=== PATIENT | female | born 1970 | race Caucasian/White ===

== ENCOUNTER 2019-11-13 11:53 | Emergency (ER) | payer SELFPAY ==
[~2019-11-13 11:53] MED LIST: Iopamidol 370 76% 100 ML VIAL ONE
[2019-11-13 12:28] LABS: #Basophils 0.1 thou/uL (0.0-0.2); #Eosinphils 0.1 thou/uL (0.0-0.7); #Lymphocytes 1.7 thou/uL (1.20-3.40); #Monocytes 0.4 thou/uL (0.11-0.59); #Neutrophils 6.9 thou/uL (1.40-6.50); %Eosinophils 0.8 % (0.0-10.0); %Monocytes 4.2 % (0.0-10.0); %Neutrophils 74.9 % (42.0-75.0); Hemoglobin 16.5 g/dL (12.0-16.0); Mean Corpuscular Hemoglobin 30.7 pg (27.0-31.0); Mean Corpuscular Volume 96.1 fL (78.0-98.0); Mean Platelet Volume 6.3 fL (7.4-10.4); Platelet Count 211 thou/uL (130-400); RBC Distribution Width 12.4 % (11.5-14.5); Red Blood Cell (RBC) Count 5.37 mill/uL (4.20-5.40); White Blood Cell (WBC) Count 9.2 thou/uL (4.8-10.8)
[2019-11-13] MEDS ORDERED: Ondansetron PF 4 MG/2 ML Vial ONE ×2 (12:32→13:16)
[2019-11-13] MEDS ORDERED: Ketorolac Tromethamine 30 MG/ML VIAL ONE (12:32)
[2019-11-13 12:39] LABS: BHCG - Serum Negative (NEGATIVE); Pregs Control Background? CLEAR/WHITE (CLR/WHITE); Pregs Control Bar Appear? YES (CONTROL BAR)
[2019-11-13 12:53] LABS: ALT (SGPT) 13 U/L (8-55); AST (SGOT) 14 U/L (5-34); Albumin 4.7 g/dL (3.5-5.0); Alkaline Phosphatase 123 U/L (40-110); Anion Gap 17 mmol/L (10-20); BUN (Urea Nitrogen) 8 mg/dL (7.0-18.7); Bilirubin, Total 0.5 mg/dL (0.2-1.2); Calc. Creatinine Clearance 0 mL/min (70-130); Calcium 10.1 mg/dL (7.8-10.44); Carbon Dioxide 26 mmol/L (22-29); Chloride 102 mmol/L (98-107); Estimated GFR-MDRD 56; Globulin 3.3 g/dL (2.4-3.5); Glucose 150 mg/dL (70-105); Potassium 3.7 mmol/L (3.5-5.1); Sodium 141 mmol/L (136-145)
[2019-11-13] MEDS ORDERED: Morphine 4 MG/ML VIAL ONE ×2 (13:16→13:36)
--- NOTE | 2019-11-13 20:12 | RAD ---
PORTABLE CHEST: Date: 11-13-2019 An AP portable film at 1255 is compared with a 12-17-15 study. FINDINGS: The heart is enlarged but no more so than before. There is no vascular congestion, edema, or pleural effusion. The lungs are clear. IMPRESSION: Mild cardiomegaly, stable. No acute findings. POS: HOME
--- NOTE | 2019-11-13 20:14 | CT ---
CT ABDOMEN AND PELVIS WITH CONTRAST: Date: 11-13-[address] of the abdomen and pelvis was done using oral contrast only. FINDINGS: The lung bases are clear. The liver, spleen, pancreas, adrenal glands, and aorta showed no acute find ings. There has been a prior cholecystectomy. All mesenteric vessels fill well. The bowel shows no distention, wall thickening, or inflammatory change around it. No free air or free fluid was evident. CT of the pelvis shows no pelvic masses, fluid collections, or definite adnexal pathology. One might wonder about a little prominence of the mucosa and wall of the rectosigmoid colon, but the finding is indefinite without enteric contrast. Degenerative disc disease is noted in the lumbar spine, especially at L3-4 and L5-S1. Posterior osteo phytes, particularly in the right, at L5-S1 could cause some impingement. IMPRESSION: 1. No definite acute findings. POS: HOME
== END 2019-11-13 14:45 | disposition home or self-care (01) ==
LOC: BURERS 11:53
DX: K29.70 Gastritis, unspecified, without bleeding (principal); R07.89 Other chest pain; R11.2 Nausea with vomiting, unspecified; E66.9 Obesity, unspecified; F31.9 Bipolar disorder, unspecified; F41.9 Anxiety disorder, unspecified; F17.210 Nicotine dependence, cigarettes, uncomplicated; G43.909 Migraine, unspecified, not intractable, without status migrainosus
CPT/HCPCS: 71045; 74177; 80053; 83690; 84484; 84703; 85025; 93005; 96361; 96374; 96375; J1885; J2270; J2405; Q9967

== ENCOUNTER 2021-10-20 08:11 | Emergency (ER) | payer SELFPAY ==
[2021-10-20] MEDS ORDERED: Ketorolac Tromethamine 30 MG/ML VIAL ONE (08:43)
== END 2021-10-20 09:30 | disposition home or self-care (01) ==
LOC: BURERS 08:11
DX: M19.032 Primary osteoarthritis, left wrist (principal); F17.210 Nicotine dependence, cigarettes, uncomplicated; G62.9 Polyneuropathy, unspecified; E66.9 Obesity, unspecified; Z87.19 Personal history of other diseases of the digestive system; Z68.45 Body mass index [BMI] 70 or greater, adult
CPT/HCPCS: 96372; J1885